=== PATIENT | male | born 1955 | race Caucasian/White ===

== ENCOUNTER 2018-04-23 18:42 | Emergency (ER) | payer MEDICARE, BC ==
[2018-04-23 19:16] VITALS: BP 147/87
--- NOTE | 2018-04-23 19:26 | UC ---
Lower Extremity/Ankle HPI - HPI Summary HPI Summary: C/O right pinky toe pain after catching it on a door jam. Treated with ice and lucio tape. - History of Current Complaint Chief Complaint: UCLowerExtremity Stated Complaint: RT PINKY TOE INJ Time Seen by Provider: 04/23/18 19:18 Hx Obtained From: Patient Onset/Duration: Sudden Onset, Lasting Days - 1 Severity Initially: Moderate Severity Currently: Mild Pain Intensity: 1 Aggravating Factor(s): Standing, Ambulation, Other - wearing shoes Alleviating Factor(s): Rest, Elevation, Ice Able to Bear Weight: Yes - Allergies/Home Medications Allergies/Adverse Reactions: Allergies Allergy/AdvReac Type Severity Reaction Status Date / Time shellfish derived Allergy Itching Verified 04/23/18 19:05 Home Medications: Home Medications Beclomethasone Dipropionate [Qnasl] 1 inh INTRANASAL BID 04/23/18 [History Confirmed 04/23/18] Irbesartan (NF) [Avapro (NF)] 150 mg PO DAILY 04/23/18 [History Confirmed ] LevoCETirizine TAB (NF) [Xyzal TAB (NF)] 5 mg PO DAILY 04/23/18 [History Confirmed 04/23/18] PMH/Surg Hx/FS Hx/Imm Hx Cardiovascular History: Hypertension - Surgical History Surgical History: Yes Surgery Procedure, Year, and Place: TONSILS/ADENOID. BROKE LEFT ARM/SET IT AND HAD TO REBREAK AND SET AGAIN. BROKE 4 TOES ON LEFT FOOT WITH PINS-THEN REMOVED - Family History Known Family History: Positive: Cardiac Disease, Hypertension, Diabetes - Social History Occupation: Retired Lives: With Family Alcohol Use: Occasionally Substance Use Type: None Smoking Status (MU): Never Smoked Tobacco Have You Smoked in the Last Year: No Review of Systems Musculoskeletal: Arthralgia - right 5th toe Is Patient Immunocompromised?: No All Other Systems Reviewed And Are Negative: Yes Physical Exam Triage Information Reviewed: Yes Appearance: Well-Appearing, No Pain Distress, Well-Nourished Vital Signs: Initial Vital Signs Temp 99.1 F 04/23/18 19:08 Pulse 76 04/23/18 19:08 Resp 18 04/23/18 19:08 BP 147/87 04/23/18 19:08 Pulse Ox 98 04/23/18 19:08 Vital Signs Reviewed: Yes Eyes: Positive: Conjunctiva Clear Neck exam: Normal Respiratory Exam: Normal Cardiovascular Exam: Normal Musculoskeletal: Positive: ROM Limited @ - right 5th toe, Other: - Tender right 5th proximal phalynx Neurological Exam: Normal Psychological Exam: Normal Skin Exam: Normal Diagnostics - Radiology No standard instances Xray Interpretation: Positive (See Comments) - proximal 5th phalynx fracture Lower Extremity Course/Dx - Differential Dx/Diagnosis Differential Diagnosis/HQI/PQRI: Contusion, Fracture (Closed), Sprain, Strain Provider Diagnoses: closed fracture proximal 5th toe phalynx Discharge - Sign-Out/Discharge Documenting (check all that apply): Patient Departure - Discharge Plan Condition: Stable Disposition: HOME Patient Education Materials: Toe Fracture (ED) Referrals: Kumar Villarreal MD [Primary Care Provider] - Additional Instructions: Use the post-op shoe for comfort. Lucio tape to stabilize the toe. - Billing Disposition and Condition Condition: STABLE Disposition: Home
--- NOTE | 2018-04-23 19:59 | RAD ---
Indication: Right fifth toe injury. 3 views of the right fifth digit demonstrates fracture of the distal end of the proximal phalanx of the fifth digit without significant displacement. IMPRESSION: Fracture distal end proximal phalanx of the fifth digit.
== END 2018-04-23 20:20 | disposition home or self-care (01) ==
LOC: UCCORT 18:42
DX: S92.511A Displaced fracture of proximal phalanx of right lesser toe(s), initial encounter for closed fracture (principal); W22.09XA Striking against other stationary object, initial encounter; Y93.9 Activity, unspecified; Y99.9 Unspecified external cause status
CPT/HCPCS: 99213; G0463